=== PATIENT | female | born 1965 | race African-American/Black ===

== ENCOUNTER 2024-10-29 11:21 | Emergency (ER) | payer BC ==
[~2024-10-29] VITALS: Ht 167.6 cm; Wt 45.0 kg
[2024-10-29 11:31] VITALS: O2SAT 98
[2024-10-29] MEDS ORDERED: METH4TAB95 MT (12:54)
[2024-10-29] MEDS ORDERED: AZIT250T12 MT (12:54)
[2024-10-29 13:23] VITALS: BP 129/56; PULSE 30; RESP 19; TEMP 37; O2SAT 100
== END 2024-10-29 13:29 | disposition home or self-care (01) ==
LOC: ER 11:21
DX: J40 Bronchitis, not specified as acute or chronic (principal); I10 Essential (primary) hypertension; E78.5 Hyperlipidemia, unspecified
CPT/HCPCS: 71045; 99283

== ENCOUNTER 2025-02-06 09:37 | Emergency (ER) | payer BC ==
[~2025-02-06] VITALS: Ht 167.6 cm; Wt 60.0 kg
[~2025-02-06 09:37] MED LIST: AZIT250T12 MT; METH4TAB95 MT
[2025-02-06 09:40] VITALS: O2SAT 99
[2025-02-06 09:45] VITALS: O2SAT 100
[2025-02-06] MEDS ORDERED: AZIT250T12 MT (11:30)
[2025-02-06] MEDS ORDERED: GUAI200T5 MT (11:30)
[2025-02-06 11:46] VITALS: BP 125/58; PULSE 72; RESP 16; TEMP 36.6
[2025-02-06 14:58] LABS: INFLUENZA TYPE A Presumptive Negative (Pres. Neg.)
[2025-02-06 14:59] LABS: INFLUENZA TYPE B Presumptive Negative (Pres. Neg.)
== END 2025-02-06 11:46 | disposition home or self-care (01) ==
LOC: ER 09:37
DX: R05.9 Cough, unspecified (principal); R09.81 Nasal congestion; Z79.899 Other long term (current) drug therapy; Z20.822 Contact with and (suspected) exposure to COVID-19
CPT/HCPCS: 71045; 87426; 87804; 99284

== ENCOUNTER 2025-04-07 09:35 | Inpatient (IN) | payer BC ==
[~2025-04-07] VITALS: Ht 165.1 cm; Wt 64.4 kg
[~2025-04-07 09:35] MED LIST changes: +GUAI200T5 MT
[2025-04-07 09:54] VITALS: O2SAT 99
[2025-04-07 10:55] LABS: BASOPHILS % 0.4 % (0.0-2.0); EOSINOPHILS % 0.6 % (0.0-5.0); HEMATOCRIT. 39.3 % (36.0-48.0); HEMOGLOBIN. 12.7 g/dL (12.0-16.0); LYMPHOCYTES % 23.4 % (20.0-50.0); MEAN PLATELET VOLUME 7.9 fl (7.4-10.4); MONOCYTES % 7.2 % (2.0-8.0); NEUTROPHILS % 68.4 % (40.0-76.0); PLATELET 276 x1000/uL (130-400); RED BLOOD CELL COUNT 4.21 mill/uL (4.2-5.4); RED CELL DISTRIBUTION WIDTH 12.5 % (11.6-14.6)
[2025-04-07] MEDS: MECLIZINE 25MG TABLET PO ONE (11:02)
[2025-04-07] MEDS: ACETAMINOPHEN 325MG TABLET PO ONE (11:02)
[2025-04-07 11:15] LABS: CREATININE 0.8 mg/dL (0.6-1.0); UREA NITROGEN BLOOD 8 mg/dL (9-23)
[2025-04-07] MEDS ORDERED: IPRATROPIUM/ALBUTEROL 0.5-3(2.5)MG/3ML NEB HHN PRN (11:45)
[2025-04-07] MEDS ORDERED: GUAIFENESIN 200MG/10ML SUGAR FREE UDC PO PRN (11:45)
[2025-04-07] MEDS ORDERED: ONDANSETRON HCL 4MG/2ML INJ IV PRN (11:45)
[2025-04-07] MEDS ORDERED: CLONIDINE 0.1MG TABLET PO PRN (11:45)
[2025-04-07] MEDS ORDERED: MECLIZINE 12.5MG TABLET PO PRN (11:45)
[2025-04-07] MEDS ORDERED: DOCUSATE SODIUM 100MG CAPSULE PO PRN (11:45)
[2025-04-07] MEDS ORDERED: ACETAMINOPHEN 325MG TABLET PO PRN ×2 (11:45)
[2025-04-07 12:00] VITALS: BP_SYST 126; BP_SYST 136; BP_SYST 138; BP_DIAS 57; BP_DIAS 63; BP_DIAS 70; PULSE 66; RESP 16; TEMP 36.1956; TEMP 36.2; O2SAT 99
[2025-04-07 12:04] LABS: TROPONIN I HIGH SENSITIVITY < 4 ng/L (3.0-34)
[2025-04-07] MEDS: ENOXAPARIN 40MG/0.4ML SYR SUBCUT SCH (13:03)
[2025-04-07] MEDS ORDERED: LOSA50TA41 MT (13:07)
[2025-04-07] MEDS ORDERED: ASPI-1497 MT (13:07)
[2025-04-07] MEDS ORDERED: ROSU40TA PO (13:08)
[2025-04-07] MEDS ORDERED: METO-396 PO (13:09)
[2025-04-07 16:00] VITALS: BP 109/49; PULSE 71; RESP 18; TEMP 36.1; O2SAT 99
[2025-04-07 20:00] VITALS: BP 120/49; PULSE 84; RESP 17; TEMP 36.5; O2SAT 100
[2025-04-07] MEDS: ATORVASTATIN CALCIUM 20MG TABLET PO SCH (22:46)
[2025-04-08] VITALS (7 sets, daily range): BP systolic 116–129; BP diastolic 44–67; PULSE 73–85; RESP 16–17; TEMP 36.2–36.9; O2SAT 98–100
[2025-04-08 08:58] LABS: BASOPHILS % 0.6 % (0.0-2.0); EOSINOPHILS % 1.2 % (0.0-5.0); HEMATOCRIT. 37.8 % (36.0-48.0); HEMOGLOBIN. 12.7 g/dL (12.0-16.0); LYMPHOCYTES % 17.8 % (20.0-50.0); MEAN PLATELET VOLUME 7.7 fl (7.4-10.4); MONOCYTES % 6.9 % (2.0-8.0); NEUTROPHILS % 73.5 % (40.0-76.0); PLATELET 278 x1000/uL (130-400); RED BLOOD CELL COUNT 4.10 mill/uL (4.2-5.4); RED CELL DISTRIBUTION WIDTH 12.7 % (11.6-14.6)
[2025-04-08 09:07] LABS: ASPARTATE AMINOTRANSFERASE 20 IU/L (<34); BILIRUBIN DIRECT 0.1 mg/dL (<=3.0); BILIRUBIN TOTAL 0.6 mg/dL (0.1-1.0); CREATININE 0.9 mg/dL (0.6-1.0); PROTEIN TOTAL 7.2 g/dL (6.0-8.3); TRIGLYCERIDE 39 mg/dL (0-150); UREA NITROGEN BLOOD 8 mg/dL (9-23)
[2025-04-08 09:08] LABS: LDL CHOLESTEROL 69 mg/dL (5-100)
[2025-04-08 09:09] LABS: T4 FREE 1.01 ng/dL (0.89-1.76)
[2025-04-08] MEDS: PANTOPRAZOLE SODIUM 40 MG/VIAL IV SCH (10:42)
[2025-04-08] MEDS: ASPIRIN 81MG TABLET PO SCH (10:43)
[2025-04-08] MEDS: LOSARTAN 50 MG TABLET PO SCH (10:44)
[2025-04-08] MEDS: SODIUM CHLORIDE 0.9% 500 ML IV ONE (12:16)
[2025-04-08] MEDS ORDERED: MECL-217 PO ×2 (15:03→15:29)
== END 2025-04-08 16:55 | disposition home or self-care (01) | DRG 74 ==
LOC: ER 09:35 → 6WST 11:12 → EDBEDREQ 11:15 → ENRESERV 11:31 → 6WST 23:15
PROVIDERS: ADMIT Internal Medicine; ATTEND Internal Medicine
DX: G90.89 Other disorders of autonomic nervous system (principal); H81.13 Benign paroxysmal vertigo, bilateral; E78.00 Pure hypercholesterolemia, unspecified; I10 Essential (primary) hypertension; R29.6 Repeated falls; Z79.899 Other long term (current) drug therapy
CPT/HCPCS: 36415; 71045; 80048; 80061; 80076; 84439; 84443; 84484; 85025; 93005; 97161; 99285; A4606; J1650; J2470; J8597